=== PATIENT | male | born 1940 | race Caucasian/White ===

== ENCOUNTER 2016-08-13 10:28 | Day surgery (SDC) | payer MEDICARE, OTHER ==
[~2016-08-13] VITALS: Ht 175.3 cm; Wt 101.6 kg
[~2016-08-13 10:28] MED LIST: ALPH50TA; ALPHTAB2 PO; ATOR40TA PO; CLON1TAB PO; CYMB60CA PO; GLUCTAB PO; IRON325T2 PO; LANTUS2P SC; LEVO100T60 PO; OXYC1SOL5 PO; PREG300 PO; PROT40TA PO; RIVA15 PO; SPIR25TA PO; SUCR1TAB PO; TORS1TAB12 PO; VICT18IN SQ; VITA400C28 PO
[2016-08-13 11:14] VITALS: BP 116/62; PULSE 104; RESP 18; TEMP 98.4; O2SAT 100
[2016-08-13 11:25] LABS: AUTOMATED NEUTROPHIL # 3.2 TH/MM3 (1.8-7.7); BASOPHIL # 0.1 TH/MM3 (0-0.2); BASOPHIL % 1.1 % (0.0-2.0); EOSINOPHIL # 0.2 TH/MM3 (0-0.4); EOSINOPHIL % 4.9 % (0.0-4.0); HEMATOCRIT 33.1 % (39.0-51.0); HEMO FLAGS DIFF FINAL; LYMPH % 21.1 % (9.0-44.0); MEAN CORPUSCULAR HEMOGLOBIN 31.8 PG (27.0-34.0); MEAN CORPUSCULAR HGB CONC 33.5 % (32.0-36.0); MONO % 6.3 % (0.0-8.0); NEUT % 66.6 % (16.0-70.0); PLATELET COUNT 156 TH/MM3 (150-450); RED BLOOD COUNT 3.48 MIL/MM3 (4.50-5.90); WHITE BLOOD COUNT 4.8 TH/MM3 (4.0-11.0)
[2016-08-13] MEDS ORDERED: FURO1TAB61 PO (11:28)
[2016-08-13] MEDS ORDERED: LANTUS2P SQ (11:28)
[2016-08-13] MEDS ORDERED: LEVO.1 PO (11:28)
[2016-08-13] MEDS ORDERED: DULO1CAP PO (11:28)
[2016-08-13] MEDS ORDERED: PERC10TA27 PO (11:28)
[2016-08-13] MEDS ORDERED: PAME25CA PO (11:28)
[2016-08-13] MEDS ORDERED: XARE15TA PO (11:28)
[2016-08-13] MEDS ORDERED: SACU1TAB PO (11:28)
[2016-08-13] MEDS ORDERED: METH5TAB PO (11:28)
[2016-08-13] MEDS ORDERED: ALDA50TA2 PO (11:28)
[2016-08-13 11:34] LABS: PROTHROMBIN TIME - PATIENT 22.8 SEC (9.8-11.6)
[2016-08-13] MEDS ORDERED: SODIUM BICARBONATE 100 MEQ in D5W 1000 ML IV SCH (11:45)
[2016-08-13 11:57] LABS: BICARBONATE 30.3 MEQ/L (21.0-32.0); POTASSIUM 4.3 MEQ/L (3.5-5.1)
[2016-08-13 12:48] LABS: INDIRECT BILIRUBIN 0.4 MG/DL (0.0-0.8); TOTAL BILIRUBIN ADULT 0.6 MG/DL (0.2-1.0)
== END 2016-08-13 13:07 | disposition home or self-care (01) ==
LOC: HCVO 10:28 → HDIC 10:29 → HCVO 13:07
PROVIDERS: ATTEND Surgery
DX: I25.10 Atherosclerotic heart disease of native coronary artery without angina pectoris (principal); Z53.9 Procedure and treatment not carried out, unspecified reason
CPT/HCPCS: 80048; 80076; 85025; 85610; G0463; 99211

== ENCOUNTER 2016-09-16 07:14 | Day surgery (SDC) | payer MEDICARE, OTHER ==
[~2016-09-16] VITALS: Ht 175.3 cm; Wt 107.0 kg
[~2016-09-16 07:14] MED LIST changes: +ALDA50TA2 PO; -ALPH50TA; -ALPHTAB2 PO; -ATOR40TA PO; -CLON1TAB PO; -CYMB60CA PO; +DULO1CAP PO; +FURO1TAB61 PO; -GLUCTAB PO; -IRON325T2 PO; -LANTUS2P SC; +LANTUS2P SQ; +LEVO.1 PO; -LEVO100T60 PO; +METH5TAB PO; -OXYC1SOL5 PO; +PAME25CA PO; +PERC10TA27 PO; -PREG300 PO; -PROT40TA PO; -RIVA15 PO; +SACU1TAB PO; -SPIR25TA PO; -SUCR1TAB PO; -TORS1TAB12 PO; -VICT18IN SQ; -VITA400C28 PO; +XARE15TA PO
[2016-09-16] MEDS ORDERED: SODIUM BICARBONATE 100 MEQ in D5W 1000 ML IV SCH (07:45)
[2016-09-16 07:51] VITALS: BP 107/63; PULSE 85; RESP 18; TEMP 98.7; O2SAT 99
[2016-09-16 08:00] LABS: AUTOMATED NEUTROPHIL # 2.2 TH/MM3 (1.8-7.7); BASOPHIL # 0.1 TH/MM3 (0-0.2); BASOPHIL % 1.3 % (0.0-2.0); EOSINOPHIL # 0.4 TH/MM3 (0-0.4); EOSINOPHIL % 8.8 % (0.0-4.0); HEMATOCRIT 32.4 % (39.0-51.0); HEMO FLAGS DIFF FINAL; LYMPH % 27.6 % (9.0-44.0); LYMPHOCYTE # 1.2 TH/MM3 (1.0-4.8); MEAN CELL VOLUME 97.1 FL (80.0-100.0); MONO % 9.5 % (0.0-8.0); NEUT % 52.8 % (16.0-70.0); PLATELET COUNT 127 TH/MM3 (150-450); RED BLOOD COUNT 3.34 MIL/MM3 (4.50-5.90); RED CELL DISTRIBUTION WIDTH 14.4 % (11.6-17.2); WHITE BLOOD COUNT 4.3 TH/MM3 (4.0-11.0)
[2016-09-16] MEDS ORDERED: SODIUM CHLORIDE 0.9% FLUSH 10 ML FLUSH IV FLUSH PRN (08:00)
[2016-09-16 08:06] LABS: PROTHROMBIN TIME - PATIENT 11.4 SEC (9.8-11.6)
[2016-09-16 08:13] LABS: BICARBONATE 34.3 MEQ/L (21.0-32.0); POTASSIUM 4.5 MEQ/L (3.5-5.1)
[2016-09-16] MEDS ORDERED: [UNRECOGNIZED DRUG - CODE] PO (08:15)
[2016-09-16] MEDS ORDERED: OMEP20TA PO (08:15)
[2016-09-16] MEDS ORDERED: POTA1TAB4 PO (08:15)
[2016-09-16] MEDS ORDERED: METO10TA4 PO (08:15)
[2016-09-16] MEDS ORDERED: PRIM50TA5 PO (08:15)
[2016-09-16] MEDS ORDERED: BUME2TAB PO (08:15)
[2016-09-16] MEDS ORDERED: OXYC1TAB13 PO (08:18)
[2016-09-16] MEDS ORDERED: HEPARIN SODIUM - IV 10,000 UNITS/10 ML VIAL ONE (08:43)
[2016-09-16] MEDS: MIDAZOLAM HCL 5 MG/ML VIAL (1 ML) ONE ×2 (09:00→09:07)
[2016-09-16] MEDS ORDERED: LIDOCAINE HCL 1% 20 ML VIAL INFIL ONE (09:03)
[2016-09-16] MEDS ORDERED: IODIXANOL 320 MG/ML 50 ML VIAL (for Cath Lab) ONE (09:03)
[2016-09-16] MEDS ORDERED: IOHEXOL 300 MG/ML 50 ML BTL (for RAD DIAG) OTHER ONE (09:03)
--- NOTE | 2016-09-16 10:08 | MA ---
cc: MARGARITA KIM DATE 09/16/2016 PREOPERATIVE DIAGNOSIS History of bilateral lower extremity claudication, left worse than right. POSTOPERATIVE DIAGNOSIS History of bilateral lower extremity claudication, left worse than right. PROCEDURE Diagnostic angiogram. SURGEON Priya, DO IV FLUIDS 1 liter of normal saline with sodium bicarb. ESTIMATED BLOOD LOSS Minimal. URINE OUTPUT Not calculated. COMPLICATIONS None. DISPOSITION To DOCU. PROCEDURE The patient's bilateral groins were prepped and draped in sterile fashion after being under moderate sedation. I got access to the right common femoral artery using duplex ultrasound. I used a 21-gauge needle and exchanged for a 4-Bangladeshi, micropuncture catheter, then a 5-Bangladeshi sheath. I advanced a Omni Flush catheter into the abdominal aorta and shot an AP aortogram. I shot pelvic oblique arteriograms and then I advanced my catheter into the external iliac artery on the left and shot a selective left lower extremity arteriogram. I pulled my catheter over a wire and shot a right lower extremity arteriogram through the sheath. At the end of the procedure I exchanged for a 6-Bangladeshi Angio-Seal in the right common femoral artery. There was some oozing afterwards and we did have to superimpose pressure to help out with the Angio-Seal that did not completely seal the groin. FINDINGS My findings were that the abdominal aorta was widely patent. The bilateral renal arteries were widely patent. The bilateral common internal and external iliac arteries were widely patent. The left common femoral and profunda femoral arteries were widely patent. The left superficial femoral artery in the mid to distal region had a long segment stenosis that was at least moderate in degree with calcification. The left popliteal artery had a high-grade stenosis as well as the tibioperoneal trunk. The patient had two-vessel runoff through the posterior tibial and peroneal arteries on the left. The patient had a left medial and lateral plantar artery that was patent. On the right side the right common femoral, profunda and superficial femoral arteries were patent. The distal superficial femoral artery had some mild disease. The patient had less severe disease in the right popliteal artery and the right tibioperoneal trunk. The patient had two-vessel runoff through the posterior tibial and peroneal artery, then had reconstitution of the distal anterior tibial artery to give rise to the dorsalis pedis. FINDINGS CONCLUSION The patient had left SFA disease that was significant as well left popliteal and tibioperoneal trunk with two-vessel runoff via the posterior tibial artery and peroneal arteries. On the right the patient had a mild SFA disease distally and the right popliteal artery had short segment moderate disease and there was disease of the tibioperoneal trunk with two-vessel runoff through the posterior tibial and peroneal artery with reconstitution of the distal anterior tibial artery and DP. DO ALVINA Nicolas/THADDEUS /9:34 AM /9:53 AM
== END 2016-09-16 16:30 | disposition home or self-care (01) ==
LOC: HDIC 07:14 → HSDC 07:14
PROVIDERS: ATTEND Surgery
DX: I70.212 Atherosclerosis of native arteries of extremities with intermittent claudication, left leg (principal); I70.291 Other atherosclerosis of native arteries of extremities, right leg
CPT/HCPCS: 36246; 75625; 75716; 80048; 85025; 85610; C1769; J1644; J2250; J3010; J7070; Q9967